=== PATIENT | female | born 1970 | race Caucasian/White ===

== ENCOUNTER → 2018-01-20 | Outpatient (CLI) | payer OTHER ==
--- NOTE | 2018-01-20 16:01 | RAD ---
DATE: January 20, 2018 EXAM: DIGITAL SCREEN BILAT W/CAD HISTORY: Screening study. COMPARISON: Baseline exam. This study was interpreted with the benefit of Computerized Aided Detection (CAD). FINDINGS: Breast Density: SCATTERED The breast parenchyma shows scattered fibroglandular densities. Breast parenchyma level B.. No clustering of pleomorphic microcalcifications are evident on either side. There is a nodule within the upper-outer quadrant of the right breast. Recommend right breast sonography for further evaluation. There is a small nodule within the upper posterior aspect of the left breast in the MLO projection only located 7 cm from the nipple. Recommend focal compression view in the MLO projection and 90 degree mediolateral view of the left breast for further evaluation. This is not seen in the CC projection. If this finding persists, sonography may be needed. IMPRESSION: Bilateral breast findings. Additional imaging is needed. BI-RADS CATEGORY: 0 INCOMPLETE: NEEDS ADDITIONAL IMAGING EVALUATION AND/OR PRIOR MAMMOGRAMS FOR COMPARISON. RECOMMENDED FOLLOW-UP: ADD ADDITIONAL IMAGING PQRS compliance statement: Patient information was entered into a reminder system with a target due date now for the next imaging study. Mammography is a sensitive method for finding small breast cancers, but it does not detect them all and is not a substitute for careful clinical examination. A negative mammogram does not negate a clinically suspicious finding and should not result in delay in biopsying a clinically suspicious abnormality. "Our facility is accredited by the [employer] Mammography Program." The patient's breast density may affect the ability of mammography to detect breast cancer. There are 4 categories of breast density, A, B, C and D. Breast density A means that most of the breast tissue is replaced with adipose tissue and therefore is not dense. Breast density B means that the breast tissue is mildly dense and scattered. Breast density C means that the breast tissue is heterogeneously dense. Breast density D means that the breast tissue is very dense. Breast densities especially C and D may decrease the sensitivity of mammography to detect breast cancer. Therefore, the patient may benefit from 3-D breast mammography (3D breast tomography) as a part of their screening mammogram. Insurance may or may not pay for this additional imaging. The patient's breast density based on today's mammogram is category B.
== END | disposition home or self-care (01) ==
LOC: MAMMO 14:57
PROVIDERS: ATTEND Family Medicine
DX: Z12.31 Encounter for screening mammogram for malignant neoplasm of breast (principal)
CPT/HCPCS: 77067

== ENCOUNTER → 2018-02-09 | Outpatient (CLI) | payer OTHER ==
--- NOTE | 2018-02-09 15:19 | RAD ---
DATE: 02/09/2018 EXAM: Bilateral digital mammograms with tomosynthesis, bilateral breast ultrasound HISTORY: Suspicious screening study COMPARISON: 01/20/2018 This study was interpreted with the benefit of Computerized Aided Detection (CAD). Breast Density: SCATTERED The breast parenchyma shows scattered fibroglandular densities. Breast parenchyma level B. FINDINGS: Additional views of both breasts were obtained including CC and MLO tomosynthesis imaging, and compared to the study from 01/20/2018. A small, 8 mm triangular opacity is seen posteriorly in the left breast at approximately 12:30 location as best seen on left CC alejandro image #31. There is a smooth, oval, 7 x 3.5 mm nodule in the lateral aspect of the right breast as best seen on right CC alejandro image #10. It appears to lie at approximately the 8-9:00 location. There is an additional tiny nodule with an internal lucency projected over the right axillary region on the right oblique tomograms compatible with a benign intramammary lymph node. No spiculated mass or architectural distortion is seen. No suspicious microcalcifications are evident. Bilateral breast ultrasound, 02/09/2018: A targeted ultrasound exam of the lateral aspect of the right breast revealed a 6 x 3 x 3 mm smooth hypoechoic nodule at the 8:30 location approximately 3 cm the nipple. This probably corresponds to the nodule seen on the mammograms, however, that cannot be stated with certainty. It is wider than tall. No definite internal color flow, posterior acoustic enhancement or shadowing is seen. This is most likely a fibroadenoma, small cyst or lymph node. A similar small elongated smooth hypoechoic nodule is also noted at the 12:30 location in the right breast approximately 6.5 cm from the nipple. A targeted ultrasound exam of the upper outer left breast demonstrated a small elongated 2 x 3 x 4 mm hypoechoic nodule at the 2:00 location approximately 3 cm from the nipple. This has a benign appearance and may be a complicated cyst. At the 12:00 location approximately 3 cm from the nipple there is a less sharply marginated 2 x 3 x 4 mm hypoechoic nodule. In the antiradial plane it appears to be taller than wide. This may correspond to the mammographic abnormality, however, that cannot be stated with certainty. IMPRESSION: 1. Small hypoechoic nodule at the 12:00 location in the left breast which may correspond to the mammographic abnormality. The sonographic features are mildly suspicious. Ultrasound-guided biopsy suggested for further evaluation. 2. Additional small bilateral probably benign breast nodules as described above. Mammographic and sonographic follow-up of these other nodules in 6 months is suggested. Note: The findings were discussed with the patient at the time of the exam. She understands the recommendation for left breast biopsy and will follow-up with the ordering provider. BI-RADS CATEGORY: 4 SUSPICIOUS ABNORMALITY- BIOPSY SHOULD BE CONSIDERED RECOMMENDED FOLLOW-UP: BIO BIOPSY RECOMMENDED PQRS compliance statement: Patient information was entered into a reminder system with a target due date for the next mammogram. Mammography is a sensitive method for finding small breast cancers, but it does not detect them all and is not a substitute for careful clinical examination. A negative mammogram does not negate a clinically suspicious finding and should not result in delay in biopsying a clinically suspicious abnormality. "Our facility is accredited by the [employer] Mammography Program."
== END | disposition home or self-care (01) ==
LOC: MAMMO 12:54
PROVIDERS: ATTEND Family Medicine
DX: N63.21 Unspecified lump in the left breast, upper outer quadrant (principal)
CPT/HCPCS: 76641; 77066; G0279; 77062

== ENCOUNTER → 2018-03-04 | Outpatient (CLI) | payer OTHER ==
--- NOTE | 2018-03-05 23:09 | PATHOLOGY ---
[facility] Accession Number: [id number] . 01 Material submitted: . LEFT BREAST MASS . 01 Clinical history: . Left breast mass . 02 Diagnosis: Breast "left breast mass biopsy": - Fibrocystic changes with the largest area measuring 0.4 cm in greatest dimension. - There is no evidence of atypia or malignancy. . (SHA:at;03/05/2018) QTA/03/05/2018 . 02 Comment: This case will receive departmental review and if there are any changes an additional report will follow. . 02 Electronically signed: . Noe Bee MD, Pathologist NPI- [id number] . 01 Gross description: . Received in formalin labeled "White, Patricia, left breast," are multiple needle cores of yellow-castañeda fibrofatty tissue measuring 1.5 x 2.0 x 0.9 cm in aggregate dimensions. The tissue submitted in its entirety in cassette A1 through A3. The cold ischemic time is 5 minutes. The total formalin fixation time is 7 hours and 50 minutes. (TSD; 03/04/2018) TOB/TOB . 02 Pathologist provided ICD-10: N60.12 . 02 CPT . 703894 Specimen Comment: A courtesy copy of this report has been sent to Specimen Comment: [phone], . Specimen Comment: Report sent to / DR OQUENDO Specimen Comment: A duplicate report has been generated due to demographic updates. Performed at: 01 [facility] [address], [place], [place] [id number] MD David Suarez MD Phone: [phone] Performed at: 02 [facility] [address] [place] [place], [place] [id number] MD Tadeo Bazzi MD Phone: [phone]
--- NOTE | 2018-03-08 13:30 | RAD ---
Ultrasound-guided left breast biopsy, 03/04/2018: History: Suspicious breast nodule Previous imaging demonstrated a suspicious nodule at the 12:00 location in the left breast approximately 3 cm from the nipple. Under local anesthesia, aseptic conditions and sonographic guidance the [employer] biopsy instrument was passed into this process via a lateral approach. Multiple 12-gauge vacuum-assisted core samples were obtained and sent to pathology for evaluation. A biopsy marker was deposited biopsy site. The biopsy instrument was then removed and hemostasis obtained. Two-view postprocedural digital mammograms were then performed to document position of the biopsy marker. There is a small hematoma at the biopsy site. The biopsy site does lie more anterior than the small vague density seen on the previous mammograms. The patient tolerated the procedure well and left the department in good condition. The subsequent pathology report indicated the presence of fibrocystic disease without evidence of malignancy. IMPRESSION: The biopsy of the suspicious sonographic finding at the 12:00 location yielded benign results. Postbiopsy mammogram shows that this process does not correspond in location to the 12:30 mammographic finding described on the 02/09/2018 exam. Bilateral mammographic and sonographic follow-up in 6 months is suggested for surveillance of this density as well as the other probably benign bilateral nodules described on the 02/09/2018 studies.
== END | disposition home or self-care (01) ==
LOC: US 12:46
PROVIDERS: ATTEND Family Medicine
DX: N60.12 Diffuse cystic mastopathy of left breast (principal)
CPT/HCPCS: 19083; 77065; 88305; C1713; 19081; 76942

== ENCOUNTER → 2018-05-05 | Day surgery (SDC) | payer OTHER ==
[~2018-05-05] MED LIST: ACET500T33 PO; BUPIVAC MPF-EPI 0.5%-1:200000 30 ML VIAL. ONE; CYCL5TAB PO; DEXAMETHASONE SOD PHOS 20 MG/5 ML VIAL. ONE; FEXO180T81 PO; HYDROmorphone 2 MG/ML VIAL IV PRN; IBUP200T44 PO; IV RINGERS,LACTATED 1000ML 1,000 ML IV SCH; KETOROLAC 30 MG/ML INJ FOR OR. INJ ONE; LIDOCAINE 1% PF 2 ML VIAL. ID PRN; LIDOCAINE 2% PF 5 ML VIAL. ONE; MORPHINE SULFATE 4 MG/ML VIAL. IV PRN; NAPR-514 PO; ONDANSETRON PF 4 MG/2 ML VIAL. IV PRN; ONDANSETRON PF 4 MG/2 ML VIAL. ONE; OXYC1TAB15 PO; PROCHLORPERAZINE 10 MG/2 ML VIAL. IV PRN; PROPOFOL 20 ML IV ONE; SEVOFLURANE 31 TO 60 MINUTES. IH ONE; fentaNYL PF VIAL 100 MCG/2 ML VIAL IV PRN
[2018-05-05 07:42] LABS: U PREG PATIENT NEGATIVE (NEG)
--- NOTE | 2018-05-05 10:27 | PDOC ---
BRIEF OPERATIVE NOTE Date: May 05, 2018 Pre-Op Diagnosis Cervical dysplasia Post-Op Diagnosis Same Procedure Performed Leep cone and ECC Surgeon Carmita Glazier Supervisor None Anesthesia Type: General Blood Loss 10cc Specimens Obtained ECC LEEP cone Complications None JONATHAN MAX MD May 05, 2018 10:27
--- NOTE | 2018-05-05 11:10 | OP ---
DATE OF SURGERY: 05/05/2018 PREOPERATIVE DIAGNOSIS:. Abnormal cervical dysplasia. POSTOPERATIVE DIAGNOSIS: Abnormal cervical dysplasia. PROCEDURE: LEEP cone and ECC. SURGEON: Talat Vizcarra M.D. NUT ROASTER HELPER: None. ANESTHESIA: General. ESTIMATED BLOOD LOSS: 10 mL. FLUIDS: Crystalloid. SPECIMENS: ECC and LEEP cone. COMPLICATIONS: None. CONDITION: Stable. DESCRIPTION OF PROCEDURE: Risks, benefits, indications, alternatives discussed in detail with the patient. The patient was brought to OR theater, placed in dorsolithotomy position in Chapo stirrups. Under adequate general anesthesia, the patient was prepped and draped in usual sterile manner. A bivalved speculum was placed. Cervix was identified. ECC was performed, placed on Telfa sponge. A large LEEP cone was also performed without any difficulties and handed off the operative field. The base of the cone was fulgurated with ball cautery. Good hemostasis was assured. Vaginal vault was wiped clean of any tissue or blood. Procedure was terminated. Sponge, needle, instrument counts correct x 2. All instruments were removed and accounted for. TALAT VIZCARRA MD DR: RAIZA/nola JOB#: [id number] / [id number]
[2018-05-05 12:10] VITALS: BP 118/74
--- NOTE | 2018-05-06 18:08 | PATHOLOGY ---
[facility] Accession Number: [id number] . 01 Material submitted: . PART A: ENDOCERVICAL CURETTINGS PART B: CERVICAL CONE . 01 Clinical history: . Abnormal Pap smear . 02 Diagnosis: A. Endocervical curettings: - Tissue insufficient for diagnosis. . B. Segments of uterine cervix, cervical cone biopsy: - Severe dysplasia/carcinoma in situ (MAHSA-III), with focal endocervical glandular extension. - MAHSA-III is focally present at the endocervical and deep endocervical margin. - Exocervical margin negative for MAHSA. - Chronic cervicitis with focal squamous metaplasia and small nabothian cysts. [facility]/05/06/2018 . 02 Comment: Sections of the cervical cone biopsy show focally extensive areas of severe dysplasia/carcinoma in situ (MAHSA-III) with focal endocervical glandular extension. There is focal MAHSA-III at the endocervical and deep endocervical margin. The exocervical margin is negative for MAHSA. There is no evidence of invasive carcinoma. Sections of the endocervical curettings reveal insufficient tissue for diagnosis. (JPM:[facility] 05/06/2018) . 02 Electronically signed: . Tadeo Bazzi MD, Pathologist NPI- [id number] . 01 Gross description: . A. The specimen is received in formalin, labeled "White Patricia, endocervical curettings", is cloudy fluid with no discrete tissue.The content of the container is filtered into a biopsy bag and entirely submitted in A1. The specimen may not survive processing. . B. The specimen is received in formalin, labeled "White, Patricia, cervical cone", is an unoriented cervical cone measuring 2.0 x 1.4 x 1.3 cm and a allen-rubbery tissue measuring 2.0 x 1.3 x 0.3 cm. The cervical cone, consist of a slit-like external os measuring 0.7 cm that is surrounded by allen-pink, partially glistening ectocervix. The specimen is inked black and radially sectioned and entirely submitted in B1-B4. The additional fragment is inked black, serially sectioned and entirely submitted in B5. (SWS; 05/05/2018) SHS/SHS . 02 Pathologist provided ICD-10: D06.9, N72, N88.8 . 02 CPT . 581453, 476107 Specimen Comment: A courtesy copy of this report has been sent to Specimen Comment: [phone], . Specimen Comment: Report sent to / DR OQUENDO Specimen Comment: A duplicate report has been generated due to demographic updates. Performed at: 01 [facility] [address], [place], [place] [id number] MD David Suarez MD Phone: [phone] Performed at: 02 [facility] [address] [place], [place] [id number] MD Tadeo Bazzi MD Phone: [phone]
== END | disposition home or self-care (01) ==
LOC: SURG 07:06
PROVIDERS: ATTEND Specialist
DX: D06.0 Carcinoma in situ of endocervix (principal); N72 Inflammatory disease of cervix uteri; N88.8 Other specified noninflammatory disorders of cervix uteri; Z88.1 Allergy status to other antibiotic agents; Z98.51 Tubal ligation status
CPT/HCPCS: 57522; 81025; 88302; 88307; J1100; J1885; J2001; J2405; J2704; J3490

== ENCOUNTER → 2018-05-13 | Outpatient (CLI) | payer OTHER ==
[2018-05-05 12:10] VITALS: BP 118/74
[~2018-05-13] MED LIST changes: -ACET500T33 PO; -BUPIVAC MPF-EPI 0.5%-1:200000 30 ML VIAL. ONE; -DEXAMETHASONE SOD PHOS 20 MG/5 ML VIAL. ONE; -FEXO180T81 PO; -HYDROmorphone 2 MG/ML VIAL IV PRN; -IV RINGERS,LACTATED 1000ML 1,000 ML IV SCH; -KETOROLAC 30 MG/ML INJ FOR OR. INJ ONE; -LIDOCAINE 1% PF 2 ML VIAL. ID PRN; -LIDOCAINE 2% PF 5 ML VIAL. ONE; -MORPHINE SULFATE 4 MG/ML VIAL. IV PRN; -NAPR-514 PO; -ONDANSETRON PF 4 MG/2 ML VIAL. IV PRN; -ONDANSETRON PF 4 MG/2 ML VIAL. ONE; -OXYC1TAB15 PO; -PROCHLORPERAZINE 10 MG/2 ML VIAL. IV PRN; -PROPOFOL 20 ML IV ONE; -SEVOFLURANE 31 TO 60 MINUTES. IH ONE; -fentaNYL PF VIAL 100 MCG/2 ML VIAL IV PRN
--- NOTE | 2018-05-13 13:54 | RAD ---
Examination: 2 views of the right shoulder and 3 views of the bilateral knees HISTORY: History of chronic right shoulder pain, chronic bilateral knee pain COMPARISON: None available FINDINGS: The humerus head is within the glenoid. There is no acute fracture or dislocation identified. Mild degenerative changes acromioclavicular joint. The alignment of the knee joint grossly appears unremarkable. Mild degenerative changes identified medial compartments of the bilateral knees. IMPRESSION: 1. Mild degenerative changes acromion clavicular joint. 2. Mild degenerative changes bilateral knee joints. Electronically signed by: Shakeel Lewis MD (05/13/2018 1:50 PM) [id number]
--- NOTE | 2018-05-13 13:57 | RAD ---
Examination: 2 views of the bilateral hips with frontal view of the pelvis HISTORY: History of hip pain COMPARISON: None available FINDINGS: The bilateral femoral heads within the acetabula. Mild joint space loss identified in the bilateral hip joints likely mild degeneration. IMPRESSION: 1. No acute osseous findings. Electronically signed by: Shakeel Lewis MD (05/13/2018 1:52 PM) [id number]
== END | disposition home or self-care (01) ==
LOC: RAD 13:12
PROVIDERS: ATTEND Family Medicine
DX: M19.012 Primary osteoarthritis, left shoulder (principal); M19.011 Primary osteoarthritis, right shoulder; M17.0 Bilateral primary osteoarthritis of knee; M25.552 Pain in left hip; M25.551 Pain in right hip; Z90.89 Acquired absence of other organs
CPT/HCPCS: 73030; 73521; 73562

== ENCOUNTER 2018-07-14 06:07 | Observation (INO) | payer OTHER ==
[2018-07-14] VITALS (9 sets, daily range): BP systolic 95–117; BP diastolic 55–78
[~2018-07-14] VITALS: Ht 165.1 cm; Wt 59.9 kg
[~2018-07-14 06:07] MED LIST changes: +ACET500T33 PO; +BUPIVAC MPF-EPI 0.5%-1:200000 30 ML VIAL. ONE; +ESTROGENS, CONJ VAGINAL CREAM 30GM TUBE. ONE; +FEXO180T81 PO; +METHYLENE BLUE 1% 10 ML VIAL. ONE; +NAPR-514 PO
[2018-07-14] MEDS ORDERED: PROCHLORPERAZINE 10 MG/2 ML VIAL. IV PRN (07:00)
[2018-07-14] MEDS ORDERED: LIDOCAINE 1% PF 2 ML VIAL. ID PRN (07:00)
[2018-07-14] MEDS ORDERED: HYDROmorphone 2 MG/ML VIAL IV PRN ×2 (07:00→09:15)
[2018-07-14] MEDS ORDERED: fentaNYL PF VIAL 100 MCG/2 ML VIAL IV PRN ×2 (07:00)
[2018-07-14] MEDS ORDERED: IV RINGERS,LACTATED 1000ML 1,000 ML IV SCH (07:00)
[2018-07-14] MEDS ORDERED: MORPHINE SULFATE 2 MG/ML VIAL. IV PRN (07:00)
[2018-07-14] MEDS ORDERED: ONDANSETRON PF 4 MG/2 ML VIAL. IV PRN ×2 (07:00→09:15)
[2018-07-14] MEDS ORDERED: ROCURONIUM 50 MG/5 ML VIAL. ONE (07:11)
[2018-07-14] MEDS ORDERED: MIDAZOLAM HCL/PF 2 MG/2 ML VIAL. ONE (07:11)
[2018-07-14] MEDS ORDERED: fentaNYL PF VIAL 250 MCG/5 ML VIAL ONE (07:12)
[2018-07-14] MEDS ORDERED: PROPOFOL 20 ML IV ONE (07:12)
[2018-07-14] MEDS ORDERED: LIDOCAINE 2% PF 5 ML VIAL. ONE (07:12)
[2018-07-14] MEDS ORDERED: DEXAMETHASONE SOD PHOS 20 MG/5 ML VIAL. ONE (07:12)
[2018-07-14] MEDS ORDERED: ONDANSETRON PF 4 MG/2 ML VIAL. ONE (07:12)
--- NOTE | 2018-07-14 07:34 | PDOC1 ---
History and Physical Date of Admission Date of Admission DATE: 07/14/18 TIME: 07:29 Identification/Chief Complaint Chief Complaint cERVICAL DYSPLASIA Source Source: Patient History of Present Illness History of Present Illness Cervical dysplasia Past Medical History Cardiovascular: No pertinent hx Pulmonary: No pertinent hx GI: No pertinent hx Heme/Onc: No pertinent hx Hepatobiliary: No pertinent hx Psych: No pertinent hx Musculoskeletal: low back pain Rheumatologic: No pertinent hx Infectious disease: No pertinent hx ENT: No pertinent hx Renal/: No pertinent hx Endocrine: No pertinent hx Dermatology: No pertinent hx Grav: 5 Para: 5 Past Surgical History Past Surgical History BTL LEEP T & A Past Surgical History: Tubal Ligation Current Medications Current Medications Current Medications Clindamycin Phosphate 50 ml @ 100 mls/hr 1X PREOP PRN IV PRIOR TO PROCEDURE; Start 07/14/18 at 06:00; Stop 07/14/18 at 18:00 Levofloxacin/ Dextrose 100 ml @ 100 mls/hr 1X PREOP PRN IV PRIOR TO PROCEDURE ; Start 07/14/18 at 06:00; Stop 07/14/18 at 18:00 Ondansetron HCl (Zofran) 4 mg PRN Q6HRS PRN IV NAUSEA/VOMITING; Start 07/14/18 at 07:00; Stop 07/15/18 at 06:59 Fentanyl Citrate (Fentanyl 2ml Vial) 25 mcg PRN Q5MIN PRN IV MILD PAIN; Start 07/14/18 at 07:00; Stop 07/15/18 at 06:59 Fentanyl Citrate (Fentanyl 2ml Vial) 50 mcg PRN Q5MIN PRN IV MODERATE TO SEVERE PAIN; Start 07/14/18 at 07:00; Stop 07/15/18 at 06:59 Morphine Sulfate (Morphine Sulfate) 1 mg PRN Q10MIN PRN IV SEVERE PAIN; Start 07/14/18 at 07:00; Stop 07/15/18 at 06:59 Ringer's Solution 1,000 ml @ 30 mls/hr Q24H IV Last administered on 07/14/18at 07:24; Start 07/14/18 at 07:00; Stop 07/14/18 at 18:59 Lidocaine HCl (Xylocaine-Mpf 1% 2ml Vial) 2 ml PRN 1X PRN ID PRIOR TO IV START ; Start 07/14/18 at 07:00; Stop 07/15/18 at 06:59 Hydromorphone HCl (Dilaudid) 0.5 mg PRN Q10MIN PRN IV SEV PAIN, Second choice; Start 07/14/18 at 07:00; Stop 07/15/18 at 06:59 Prochlorperazine Edisylate (Compazine) 5 mg PACU PRN PRN IV NAUSEA, MRX1; Start 07/14/18 at 07:00; Stop 07/15/18 at 06:59 Bupivacaine HCl/ Epinephrine Bitart (Sensorcain-Mpf Epi 0.5%-1:836740) 30 ml STK -MED ONCE .ROUTE ; Start 07/14/18 at 05:48; Stop 07/14/18 at 06:48; Status DC Methylene Blue (Methylene Blue) 1 ml STK-MED ONCE .ROUTE ; Start 07/14/18 at 05: 48; Stop 07/14/18 at 06:48; Status DC Estrogens Conjugated (Premarin) 30 juliano STK-MED ONCE .ROUTE ; Start 07/14/18 at 05:48; Stop 07/14/18 at 06:49; Status DC Rocuronium Pimento (Zemuron) 50 mg STK-MED ONCE .ROUTE ; Start 07/14/18 at 07:11 ; Stop 07/14/18 at 07:12; Status DC Midazolam HCl (Versed) 2 mg STK-MED ONCE .ROUTE ; Start 07/14/18 at 07:11; Stop 07/14/18 at 07:12; Status DC Fentanyl Citrate (Fentanyl 5ml Vial) 250 mcg STK-MED ONCE .ROUTE ; Start at 07:12; Stop 07/14/18 at 07:13; Status DC Dexamethasone Sodium Phosphate (Decadron) 20 mg STK-MED ONCE .ROUTE ; Start 01/22 at 07:12; Stop 07/14/18 at 07:13; Status DC Ondansetron HCl (Zofran) 4 mg STK-MED ONCE .ROUTE ; Start 07/14/18 at 07:12; Stop 07/14/18 at 07:13; Status DC Propofol 20 ml @ As Directed STK-MED ONCE IV ; Start 07/14/18 at 07:12; Stop 01/22 at 07:13; Status DC Lidocaine HCl (Lidocaine Pf 2% Vial) 5 ml STK-MED ONCE .ROUTE ; Start 07/14/18 at 07:12; Stop 07/14/18 at 07:13; Status DC Active Scripts Active Reported [facility] (Fexofenadine Hcl) 180 Mg Tablet 1 Tab PO PRN DAILY PRN Tylenol Extra Strength (Acetaminophen) 500 Mg Tablet 1,000 Mg PO PRN PRN Naproxen 500 Mg Tablet 1 Tab PO PRN Q12HR PRN Motrin Ib (Ibuprofen) 200 Mg Tablet 400 Mg PO PRN PRN Allergies Allergies: Coded Allergies: cephalexin (Verified Allergy, Intermediate, BROKE OUT ALL OVER/ITCH VERY BAD, 07/12/18) Physical Exam General: Alert, Oriented X3, Cooperative, No acute distress HEENT: PERRLA Lungs: Clear to auscultation, Normal air movement Breasts: Normal, Rt breast nml w/o mass, Lt breast nml w/o mass, Nipples normal Abdomen: Normal bowel sounds, Soft, No tenderness, No hepatosplenomegaly, No masses Male Genitals Exam: normal genitalia, normal prostate Extremities: No clubbing, No cyanosis, No edema, Normal pulses, No tenderness/ swelling Skin: No rashes, No breakdown, No significant lesion Neuro: Normal gait, Normal speech, Strength at 5/5 X4 ext, Normal tone, Sensation intact, Cranial nerves 3-12 NL, Reflexes 2+ Psych/Mental Status: Mental status NL, Mood NL Vitals Vitals Vital Signs Date Time Temp Pulse Resp B/P (MAP) Pulse Ox O2 Delivery O2 Flow Rate FiO2 07/14/18 07:22 97.5 85 16 125/81 99 Room Air 97.5 VTE Prophylaxis Ordered VTE Prophylaxis Devices: Yes VTE Pharmacological Prophylaxi: No Assessment/Plan Assessment/Plan cervical Dysplasia [facility] SARITAO JONATHAN MAX MD Jul 14, 2018 07:34
[2018-07-14] MEDS: CLINDAMYCIN 900MG PREMIX 50 ML IV PRN ×2 (07:40→07:55)
[2018-07-14] MEDS ORDERED: INDIGOTINDISULFONATE SODIUM 40 MG/5 ML AMPUL. IV ONE (07:45)
[2018-07-14] MEDS ORDERED: metroNIDAZOLE 0.75% VAGINAL 1 APP TUBE VG ONE (07:45)
[2018-07-14] MEDS ORDERED: NEOSTIGMINE METHYLSULFATE 5 MG/5 ML SYRINGE. ONE (09:08)
[2018-07-14] MEDS ORDERED: GLYCOPYRROLATE 1 MG/5 ML VIAL. ONE (09:08)
[2018-07-14] MEDS ORDERED: diphenhydrAMINE HCL 25 MG CAPSULE PO PRN (09:15)
[2018-07-14] MEDS ORDERED: CALCIUM CARBONATE 500 MG TAB.CHEW PO PRN (09:15)
[2018-07-14] MEDS ORDERED: 0.9 % SODIUM CHLORIDE 10 ML DISP.SYRIN. IV PRN (09:15)
[2018-07-14] MEDS ORDERED: diphenhydrAMINE 50 MG/ML VIAL IV PRN (09:15)
[2018-07-14] MEDS ORDERED: ZOLPIDEM 5 MG TABLET. PO PRN (09:15)
[2018-07-14] MEDS ORDERED: SIMETHICONE 80 MG TAB.CHEW PO PRN (09:15)
[2018-07-14] MEDS ORDERED: NALOXONE 0.4 MG/ML VIAL. IV PRN (09:15)
[2018-07-14] MEDS ORDERED: MAG HYDROX/ALUMINUM HYD/SIMETH 30 ML ORAL.SUSP PO PRN (09:15)
[2018-07-14] MEDS ORDERED: DEXTROSE 50% 25 GM / 50ML DISP.SYRIN. IV PRN (09:15)
--- NOTE | 2018-07-14 09:15 | PDOC ---
BRIEF OPERATIVE NOTE Date: Jul 14, 2018 Pre-Op Diagnosis Cervical dysplasia Post-Op Diagnosis Same Procedure Performed [facility] Surgeon Carmita Anesthesia Type: General Blood Loss 200cc Specimens Obtained Uterus Complications None JONATHAN MAX MD Jul 14, 2018 09:15
[2018-07-14] MEDS ORDERED: fentaNYL PF VIAL 100 MCG/2 ML VIAL ONE (09:52)
[2018-07-14] MEDS: oxyCODONE/APAP 5/325 1 TAB TABLET PO PRN ×2 (12:37→18:34)
[2018-07-14] MEDS: CLINDAMYCIN 600MG PREMIX 600 ML IV SCH ×2 (14:02→20:04)
[2018-07-14] MEDS: KETOROLAC 30 MG/ML VIAL. IV PRN ×2 (15:07→21:00)
[2018-07-14] MEDS ORDERED: DOCUSATE SODIUM 100 MG CAPSULE. PO SCH (21:00)
[2018-07-14] MEDS ORDERED: SENNOSIDES/DOCUSATE 8.6/50MG TABLET. PO SCH (21:00)
[2018-07-15] MEDS: CLINDAMYCIN 600MG PREMIX 600 ML IV SCH (01:58)
[2018-07-15 04:51] LABS: CALCIUM 8.3 mg/dL (8.5-10.1); CREATININE 0.7 mg/dL (0.6-1.0); GFR 89.7; POTASSIUM 4.1 mmol/L (3.5-5.1)
[2018-07-15] MEDS: oxyCODONE/APAP 5/325 1 TAB TABLET PO PRN (06:12)
[2018-07-15 06:24] VITALS: BP 101/62
[2018-07-15] MEDS ORDERED: NAPR-514 PO (08:53)
[2018-07-15] MEDS ORDERED: OXYC1TAB15 PO (08:53)
--- NOTE | 2018-07-15 08:56 | PDOC3 ---
Discharge Summary Visit Information Date of Admission: Jul 14, 2018 Date of Discharge: Jul 16, 2018 Admitting Diagnosis: Recurrent cervical dyspasia Final Diagnosis Same Brief Hospital Course Allergies Allergies Coded Allergies Type Severity Reaction Last Updated Verified cephalexin Allergy Intermediate BROKE OUT ALL OVER/ITCH VERY BAD 07/12/18 Yes Vital Signs Vital Signs Date Time Temp Pulse Resp B/P (MAP) Pulse Ox O2 Delivery O2 Flow Rate FiO2 07/15/18 06:24 98.3 88 16 101/62 (75) 98 98.3 07/14/18 23:01 Room Air 07/14/18 10:45 2.0 Lab Results Laboratory Tests Test 07/15/18 03:30 07/15/18 04:10 Sodium Level 139 mmol/L (136-145) Potassium Level 4.1 mmol/L (3.5-5.1) Chloride Level 105 mmol/L (98-107) Carbon Dioxide Level 26 mmol/L (21-32) Anion Gap 8 (6-14) Blood Urea Nitrogen 10 mg/dL (7-20) Creatinine 0.7 mg/dL (0.6-1.0) Estimated GFR (Cockcroft-Gault) 89.7 Glucose Level 110 mg/dL (70-99) Calcium Level 8.3 mg/dL (8.5-10.1) Hematocrit 36.4 % (36.0-47.0) Laboratory Tests Test 07/15/18 03:30 07/15/18 04:10 Sodium Level 139 mmol/L (136-145) Potassium Level 4.1 mmol/L (3.5-5.1) Chloride Level 105 mmol/L (98-107) Carbon Dioxide Level 26 mmol/L (21-32) Anion Gap 8 (6-14) Blood Urea Nitrogen 10 mg/dL (7-20) Creatinine 0.7 mg/dL (0.6-1.0) Estimated GFR (Cockcroft-Gault) 89.7 Glucose Level 110 mg/dL (70-99) Calcium Level 8.3 mg/dL (8.5-10.1) Hematocrit 36.4 % (36.0-47.0) Brief Hospital Course Hospital course unremarkable Discharge Information Condition at Discharge: Stable Follow Up: Weeks (one) Scheduled Naproxen (Naproxen) 500 Mg Tablet, 500 MG PO BID for pain, #60 Ref 2 Prescribed by: JONATHAN MAX on 07/15/18 0853 Scheduled PRN Acetaminophen (Tylenol Extra Strength) 500 Mg Tablet, 1,000 MG PO PRN PRN for PAIN, (Reported) Entered as Reported by: DEMETRIS SULLIVAN on 06/21/181530 Last Action: Reviewed on 07/12/181537 by DEMETRIS SULLIVAN Fexofenadine Hcl ([facility]) 180 Mg Tablet, 1 TAB PO PRN DAILY PRN for ALLERGIES, #30 Ref 2 (Reported) Entered as Reported by: DEMETRIS SULLIVAN on 06/21/181531 Last Action: Reviewed on 07/12/181537 by DEMETRIS SULLIVAN Ibuprofen (Motrin Ib) 200 Mg Tablet, 400 MG PO PRN PRN for PAIN, (Reported) Entered as Reported by: DEMETRIS SULLIVAN on 05/04/18 1503 Last Action: Reviewed on 07/12/181537 by DEMETRIS SULLIVAN Naproxen (Naproxen) 500 Mg Tablet, 1 TAB PO PRN Q12HR PRN for PAIN, #60 Ref 1 ( Reported) Entered as Reported by: DEMETRIS SULLIVAN on 06/21/181529 Last Action: Reviewed on 07/12/181537 by DEMETRIS SULLIVAN Oxycodone/Apap 5-325 (Percocet 5-325 Mg Tablet ) 1 Each Tablet, 1 TAB PO PRN Q6HRS PRN for PAIN, #30 Ref 0 Prescribed by: JONATHAN MAX on 07/15/18 0853 JONATHAN MAX MD Jul 15, 2018 08:56
[2018-07-15] MEDS ORDERED: IBUPROFEN 400 MG TABLET. PO SCH (09:30)
[2018-07-15 11:00] VITALS: BP 110/68
--- NOTE | 2018-07-16 11:08 | PATHOLOGY ---
[facility] Accession Number: [id number] . 01 Material submitted: . uterus - CERVIX,UTERUS . 01 Clinical history: . Cervical dysplasia . 02 Diagnosis: Uterus, hysterectomy: - Status post cervical conization showing focal scarring, chronic inflammation, hemosiderin-laden macrophages, and focal foreign body giant cell reaction - no residual high grade MAHSA identified. - Chronic cervicitis with focal squamous metaplasia. - Proliferative endometrium. - Adenomyosis, uterine corpus, subbasal,focal. - Submucosal leiomyoma, small. (JPM:alissa; 07/15/2018) R/07/16/2018 . 02 Comment: The entire uterine cervix is submitted for histologic evaluation. There is no residual high grade MAHSA. (JPM:alissa; 07/15/2018) . 02 Electronically signed: . Tadeo Bazzi MD, Pathologist NPI- [id number] . 01 Gross description: . The specimen is received in formalin, labeled "White, Patricia, cervix, uterus" and consists of a 82 g uterus with attached cervix measuring 8.5 x 5.0 x 3.9 cm. The uterine serosa is pink-allen with adhesions/hemorrhage. The 1.0 cm cervical os is surrounded by disrupted/ragged pink-allen and hemorrhagic ectocervical mucosa. Present in each cornu is a fallopian tube stump with the right measuring 0.9 x 0.4 cm and left 1.0 x 0.3 cm. The paracervical margin is inked black. The specimen is bivalved revealing a corrugated endocervical canal measuring 1.8 cm in length. The endometrial cavity is triangular measuring 3.5 cm in length and 2.1 cm in width which is lined by a pink-red endometrium measuring 0.1 cm. There is a possible polyp in the posterior MIGUEL measuring 1.1 x 0.5 cm. The myometrium is pink-allen measuring up to 2.3 cm with no nodules or masses. Both fallopian tube stumps reveal a well-defined central lumen and no gross lesions. Glue Spreading Machine Operator sections to include the entire cervix are submitted as follows: . A1-A2: 12-3:00 cervix A3-A6: 3-6:00 cervix A7-A10: 6-9:00 cervix A11-A12: 9-12:00 cervix A13: Anterior endomyometrium A14: Posterior endomyometrium A15: Posterior possible polyp A16: Right fallopian tube stump A17: Left fallopian tube stump (SDY; 07/14/2018) SYU/SYU . 02 Pathologist provided ICD-10: D25.9, N72, N80.0 . 02 CPT . 276656 Specimen Comment: A courtesy copy of this report has been sent to Specimen Comment: [phone]. Specimen Comment: Report sent to Performed at: [facility] [address], [place] [id number] MD David Suarez MD Phone: [phone] Performed at: [facility] [address] [place], [place] [id number] MD Tadeo Bazzi MD Phone: [phone]
--- NOTE | 2018-08-12 12:40 | OP ---
DATE OF SURGERY: 07/14/2018 PREOPERATIVE DIAGNOSIS: Cervical dysplasia, recurrent/recurrent cervical dysplasia. POSTOPERATIVE DIAGNOSIS: Cervical dysplasia, recurrent/recurrent cervical dysplasia. PROCEDURE: Laparoscopic assisted vaginal hysterectomy. SURGEON: Talat Vizcarra M.D. COMMERCIAL CONSTRUCTION PROJECT MANAGER: None. ANESTHESIA: General. ESTIMATED BLOOD LOSS: 200 mL. SPECIMENS: Uterus. COMPLICATIONS: None. CONDITION: Stable. DESCRIPTION OF PROCEDURE: After risks, benefits, indications, alternatives discussed in detail with the patient, the patient brought to OR theater, placed in the dorsal lithotomy position in [facility]. After adequate general anesthesia, the patient prepped and draped in usual sterile manner. A posterior speculum was used to put in the vaginal vault to identify the cervix. Cervix was grasped with single tooth tenaculum. A uterine manipulator was placed transcervically in the usual fashion. Attention was then turned to anterior abdominal wall after the posterior weighted speculum was removed. A small infraumbilical incision was made sharply with a scalpel through this via Visiport. A 5-mm disposable trocar was placed. Two lateral trocars were placed under direct visualization after infiltrating the skin and the peritoneum. The patient was placed in deep Trendelenburg. First, the left uteroovarian mesosalpinx and round ligament was taken down with the LigaSure in a clamp, cauterize, cut fashion. This was taken all the way down through the Mackenrodt ligament. The same procedure was carried out on the opposite side. Bladder flap was created also using tenting the bladder reflection using the LigaSure to incise the reflection and displace the bladder caudad. All laparoscopic instruments were removed. Pneumoperitoneum was allowed to dissipate. Approximately, 100 mL of warm saline was placed in the pelvic cavity. The patient was taken out Trendelenburg. Legs were placed in high lithotomy. A posterior weighted speculum was placed in the vaginal vault. Uterine manipulator was removed. Cervix was grasped with single tooth tenaculum. Posterior cul-de-sac was entered sharply with Miller scissors posteriorly from the peritoneum was attached to the posterior vaginal vault and circumscribed with the scalpel. The pubovesical cervical fascia was both bluntly and sharply. Anterior cul-de-sac was entered sharply with Metzenbaum scissors and a Whiteclay was placed in the space to displace the bladder superior. A long weighted speculum was also placed in the posterior cul-de-sac to displace the rectum inferiorly. The remaining attachments of the uterosacral and part of the cardinal ligaments were clamped, cut and tied bilaterally using Oswaldo clamps. The uterus was transected from these clamps and handed off the operative field. The vaginal cuff was reapproximated with 2-0 Vicryl in a vertical mattress stitch fashion. Good reapproximation was assured. The vaginal vault was irrigated copiously with warm normal saline, packed with vaginal packing and MetroGel. Attention was then turned back to the laparoscopic part of the procedure. Pneumoperitoneum was once again created. All pedicles were inspected and noted to be hemostatic. Good repair was noted. Both ureters were seen peristalsing and procedure was terminated. Pneumoperitoneum was allowed to dissipate. All laparoscopic instruments were removed. Trocar sleeves were removed. The incisions were reapproximated with 4-0 Monocryl in subcuticular fashion. An infraumbilical incision was infiltrated with 0.5% Marcaine with epinephrine. The patient went to postop anesthesia recovery in stable condition. TALAT VIZCARRA MD DR: RAIZA/nola JOB#: [id number] / [id number]
== END 2018-07-15 11:41 | disposition home or self-care (01) ==
LOC: SURG 06:07 → 3 NORTH 09:55
PROVIDERS: ADMIT Specialist; ATTEND Specialist
DX: N87.9 Dysplasia of cervix uteri, unspecified (principal)
CPT/HCPCS: 36415; 58550; 80048; 85014; 86850; 86900; 86901; 88307; 96365; 96366; 96375; 96376; A7015; G0378; G0379; J1100; J1885; J1956; J2001; J2250; J2405; J2704; J2710; J3010; J3490; J7030; J7120; Q9968